=== PATIENT | male | born 1945 | race Two or more races ===

== ENCOUNTER 2024-07-10 08:24 | Emergency (ER) | payer OTHER ==
[~2024-07-10] VITALS: Ht 160 cm; Wt 76.7 kg
[2024-07-10] MEDS ORDERED: CHILDREN'S ASPI81 MG PO (08:29)
[2024-07-10] MEDS ORDERED: SYNTHROID50 MCG PO (08:29)
[2024-07-10] MEDS ORDERED: PEPCID AC10 MG PO (08:31)
[2024-07-10] MEDS ORDERED: BACLOFEN10 MG PO (09:24)
[2024-07-10] MEDS ORDERED: DICLOFENAC SODI75 MG PO (09:24)
[2024-07-10] MEDS ORDERED: KETOROLAC TROMETHAMINE 60 MG VIAL IM ONE ×2 (09:30→09:37)
[2024-07-10] MEDS ORDERED: DEXAMETHASONE SODIUM PHOSPHATE 4 MG/ML VIAL IM ONE (09:30)
[2024-07-10] MEDS ORDERED: ORPHENADRINE CITRATE 30 MG/ML AMPUL IM ONE (09:30)
[2024-07-10] MEDS ORDERED: ORPHENADRINE CITRATE 30 MG/ML AMPUL ONE (09:37)
[2024-07-10] MEDS ORDERED: DEXAMETHASONE SODIUM PHOSPHATE 4 MG/ML VIAL ONE (09:37)
== END 2024-07-10 09:51 | disposition home or self-care (01) ==
LOC: ER 08:27
DX: M54.50 Low back pain, unspecified (principal); R10.9 Unspecified abdominal pain; E03.8 Other specified hypothyroidism

== ENCOUNTER 2024-08-08 12:47 | Emergency (ER) | payer OTHER ==
[~2024-08-08] VITALS: Ht 160 cm; Wt 76.2 kg
[~2024-08-08 12:47] MED LIST: BACLOFEN10 MG PO; CHILDREN'S ASPI81 MG PO; DICLOFENAC SODI75 MG PO; PEPCID AC10 MG PO; SYNTHROID50 MCG PO
[2024-08-08] MEDS ORDERED: MECLIZINE HCL 25 MG TABLET PO STA (15:52)
[2024-08-08] MEDS ORDERED: DEXAMETHASONE SODIUM PHOSPHATE 4 MG/ML VIAL IM STA (15:52)
[2024-08-08] MEDS ORDERED: DEXAMETHASONE SODIUM PHOSPHATE 4 MG/ML VIAL ONE (16:01)
[2024-08-08] MEDS ORDERED: MECLIZINE HCL 25 MG TABLET PO ONE (16:01)
[2024-08-08 16:56] LABS: HEMATOCRIT 41.7 % (39.0-48.0); HEMOGLOBIN 13.5 g/dL (13-16.00); MEAN CELL VOLUME 87.7 fL (80.0-100.00); MEAN CORPUSCULAR HEMOGLOBIN 28.4 pg (27.00-32.0); MEAN CORPUSCULAR HGB CONC 32.4 g/dl (32.0-36.0); PLATELET COUNT 234 K/uL (150-450); RED BLOOD COUNT 4.76 M/uL (4.00-6.00); RED CELL DISTRIBUTION WIDTH 13.7 % (11.5-14.5)
[2024-08-08 17:19] LABS: CALCIUM 9.1 mg/dL (8.5-10.1); CREATININE SERUM 1.09 mg/dL (0.70-1.30); GFR 65.77; POTASSIUM 4.73 mEq/L (3.5-5.1)
== END 2024-08-08 18:12 | disposition home or self-care (01) ==
LOC: ER 12:47
PROVIDERS: General Practice
DX: R42 Dizziness and giddiness (principal); E03.8 Other specified hypothyroidism

== ENCOUNTER 2024-12-15 08:07 | Outpatient (CLI) | payer OTHER | END 2024-12-15 08:20 | disposition home or self-care (01) | LOC: RAD 08:07 | PROVIDERS: ATTEND Physical Medicine & Rehabilitation | DX: M54.6 Pain in thoracic spine (principal); M54.2 Cervicalgia; M54.50 Low back pain, unspecified ==

== ENCOUNTER 2025-01-06 09:13 | Emergency (ER) | payer OTHER ==
[~2025-01-06] VITALS: Ht 160 cm; Wt 73.5 kg
[2025-01-06] MEDS ORDERED: TAMS0.4C PO (09:22)
[2025-01-06] MEDS ORDERED: PROMETHAZINE HCL 25 MG/ML AMPUL IM ONE (11:15)
== END 2025-01-06 12:50 ==
LOC: EMR PED 09:13 → ER 09:13 → EMR PED 09:34 → ER 09:34
DX: R42 Dizziness and giddiness (principal); E03.8 Other specified hypothyroidism

== ENCOUNTER 2025-02-23 08:30 | Outpatient (CLI) | payer OTHER ==
[~2025-02-23 08:30] MED LIST changes: +TAMS0.4C PO
== END 2025-02-23 08:36 | disposition home or self-care (01) ==
LOC: MRI 08:30
PROVIDERS: ATTEND Otolaryngology
DX: H90.A22 Sensorineural hearing loss, unilateral, left ear, with restricted hearing on the contralateral side (principal)
CPT/HCPCS: 70553

== ENCOUNTER 2025-05-19 09:27 | Emergency (ER) | payer OTHER ==
[~2025-05-19] VITALS: Ht 160 cm; Wt 74.8 kg
[2025-05-19] MEDS ORDERED: PLAVIX75 MG (10:03)
[2025-05-19] MEDS ORDERED: ATORVASTATIN CA80 MG (10:04)
[2025-05-19] MEDS ORDERED: CARBAMAZEPINE200 M3 (10:04)
[2025-05-19] MEDS ORDERED: HORIZANT300 MG (10:10)
[2025-05-19] MEDS ORDERED: OXYTROL1 EACH (10:10)
[2025-05-19 11:33] LABS: BASO % 1.0 % (0.1-1.2); EOS # 0.15 (0.04-0.54); EOS % 3.1 % (0.7-7.0); LYMPH # 1.71 (1.18-3.74); LYMPH % 35.1 % (19.3-53.1); MEAN PLATELET VOLUME 9.80 fl (9.4-12.4); MONO # 0.62 (0.24-0.82); NEUT # 2.33 (1.56-6.13); NEUT % 47.9 % (34.0-71.1); RED CELL DISTRIBUTION WIDTH 13.3 % (11.6-14.4)
[2025-05-19 11:36] LABS: MONO % 12.7 % (4.7-12.5)
[2025-05-19 11:53] LABS: ALT/SGPT 84.0 U/L (12-78); AST/SGOT 43.0 U/L (15-37); BILIRUBIN TOTAL 0.34 mg/dL (0.3-1.2); BUN CREA RATIO 14.0 (7.0-25.0); CREATININE SERUM 1.07 mg/dL (0.70-1.30); GFR 67.01; GLOBULINA 3.9 G/DL (2.4-3.5); GLUCOSE FASTING 104.0 mg/dL (65-100); OSMOLALITY SERUM 284.0 MOSM/KG (275-295)
[2025-05-19 12:05] LABS: COVID-19 AG NEGATIVE (NEGATIVE)
[2025-05-19] MEDS ORDERED: GILTUSS COUGH-118 M1 PO (13:34)
[2025-05-19] MEDS ORDERED: ACETAMINOPHEN500 M1 PO (13:34)
[2025-05-19] MEDS ORDERED: ZYRTEC10 M3 PO (13:34)
== END 2025-05-19 14:03 | disposition home or self-care (01) ==
LOC: ER 09:27
PROVIDERS: Preventive Medicine Public Health & General Preventive Medicine
DX: B34.9 Viral infection, unspecified (principal); E03.8 Other specified hypothyroidism; R51.9 Headache, unspecified; R50.9 Fever, unspecified; Z20.822 Contact with and (suspected) exposure to COVID-19